=== PATIENT | male | born 1990 | race Caucasian/White ===

== ENCOUNTER 2018-11-11 05:06 | Day surgery (SDC) | payer OTHER ==
[~2018-11-11] VITALS: Ht 170.2 cm; Wt 86.2 kg
[2018-11-11] MEDS ORDERED: CEFAZOLIN SODIUM 1 GM/D5W PM 50 ML IV SCH (07:00)
[2018-11-11] MEDS ORDERED: KETOROLAC 30 MG/ML VIAL ONE (07:35)
[2018-11-11] MEDS ORDERED: DEXAMETHASONE 10 MG/ML VIAL ONE (07:35)
[2018-11-11] MEDS ORDERED: ONDANSETRON 4 MG/2 ML VIAL ONE (07:35)
[2018-11-11] MEDS ORDERED: SEVOFLURANE 250 ML BTL INH ONE (07:35)
[2018-11-11] MEDS ORDERED: SUCCINYLCHOLINE CHLORIDE 200 MG/10 ML VIAL IVP ONE (07:35)
[2018-11-11] MEDS ORDERED: PROPOFOL 200 MG/20 ML VIAL IV ONE (07:35)
[2018-11-11] MEDS ORDERED: LACTATED RINGERS 1,000 ML IV SCH (07:36)
[2018-11-11] MEDS ORDERED: BUPIVACAINE-MPF/EPI 0.25% 30 ML VIAL INJ ONE ×2 (07:37→09:40)
[2018-11-11] MEDS ORDERED: MEPERIDINE 25 MG/ML SYR IVP PRN (07:40)
[2018-11-11] MEDS ORDERED: diphenhydrAMINE 50 MG/ML VIAL IVP PRN (07:40)
[2018-11-11] MEDS ORDERED: HYDROmorphone 1 MG/ML AMP IVP PRN ×2 (07:40→09:50)
[2018-11-11] MEDS ORDERED: ONDANSETRON 4 MG/2 ML VIAL IVP PRN (07:40)
[2018-11-11] MEDS ORDERED: fentaNYL 0.05 MG/ML VIAL ONE (07:41)
[2018-11-11] MEDS ORDERED: MIDAZOLAM 2 MG/2 ML VIAL ONE (07:41)
[2018-11-11] MEDS ORDERED: MEPERIDINE 50 MG/ML SYR ONE (07:42)
[2018-11-11] MEDS ORDERED: HYDROcodone/APAP 5/325 MG 1 TAB TAB PO PRN (09:50)
[2018-11-11] MEDS ORDERED: ONDANSETRON 4 MG/2 ML VIAL IV PRN (09:50)
[2018-11-11] MEDS ORDERED: MORPHINE SULFATE 2 MG/ML SYR IVP PRN (09:50)
[2018-11-11] MEDS ORDERED: MORPHINE SULFATE 4 MG/ML SYR IV PRN (09:50)
[2018-11-11 12:00] VITALS: BP 125/83
[2018-11-11 12:15] VITALS: BP 111/61
[2018-11-11 12:30] VITALS: BP 117/74
[2018-11-11 12:45] VITALS: BP 113/70
[2018-11-11 13:00] VITALS: BP 120/75
[2018-11-11 13:30] VITALS: BP 107/79
== END 2018-11-11 15:30 | disposition home or self-care (01) ==
LOC: MDS 05:06 → MMU 05:59 → MDS 15:30
PROVIDERS: ATTEND Surgery
DX: K40.91 Unilateral inguinal hernia, without obstruction or gangrene, recurrent (principal); J45.909 Unspecified asthma, uncomplicated; Z98.890 Other specified postprocedural states
CPT/HCPCS: 49520; 71045; C1781; J0330; J0690; J1100; J1885; J2250; J2405; J2704; J3010; J3490; J7120; J2175; J7060